=== PATIENT | female | born 1995 | race Caucasian/White ===

== ENCOUNTER 2017-03-28 17:56 | Emergency (ER) | payer SELFPAY ==
[~2017-03-28] VITALS: Ht 160 cm; Wt 59.7 kg
[~2017-03-28 17:56] MED LIST: BACT800T5 PO
[2017-03-28 18:21] VITALS: BP 147/61; PULSE 102; RESP 16; TEMP 100.1; O2SAT 96
[2017-03-28] MEDS ORDERED: PROCHLORPERAZINE INJ 10 MG/2 ML VIAL IV PUSH ONE (20:00)
[2017-03-28] MEDS ORDERED: diphenhydrAMINE HCL 50 MG/ML VIAL IV PUSH ONE (20:00)
--- NOTE | 2017-03-28 20:07 | PD ---
HPI . Headache Chief Complaint: Headache Time Seen by Provider: 19:41 Travel History International Travel<30 days: No Contact w/Intl Traveler<30days: No Traveled to known affect area: No History of Present Illness HPI Patient is a 21 year old female who presents with a headache. Patient reports that the headache began yesterday evening which affected her sleep to the point of waking up her which rarely occurs. The headache originally was felt to be located in her forehead but has since migrated to her temples and eyes. She reports that the headache has worsened. She describes that the pain started out as a constant pressure when in the forehead but has since transitioned to a throbbing & pulsing pain in her temples. Light seems to aggravate the headache, while 2 Advil Migraines combined with a wet washcloth on her forehead and a 5 minute nap brought some relief this morning. A follow up afternoon Advil Migraine did not provide relief. She is currently menstruating but reports irregularity in her cycle due to Depo shots previously and a current implanted Paragard copper IUD. She reports ear pain but denies jaw pain at rest or during chewing. Reports sensitivity to light and dry eyes, but denies seeing double or having blurred vision. Denies any nasal congestion or draining. PFSH Past Medical History Diminished Hearing: No ?: Unknown Social History Alcohol Use: No Tobacco Use: No Substance Use: No Allergies-Medications (Allergen,Severity, Reaction): Coded Allergies: No Known Allergies (Unverified Adverse Reaction, Unknown, 03/28/17) Reported Meds & Prescriptions Reported Meds & Active Scripts Active Review of Systems Except as stated in HPI: all other systems reviewed are Neg General / Constitutional: Positive: Fever, Chills Eyes: Positive: Photophobia, Pain, No: Diploplia, Blurred Vision, Drainage HENT: Positive: Headaches, No: Rhinitis, Rhinorrhea, Congestion Physical Exam Narrative GENERAL: Pleasant female in no acute distress SKIN: warm/dry. HEAD: Normocephalic. EYES: Pupils equal and round. Reactive to light. No scleral icterus. No injection or drainage. ENT: No nasal bleeding or discharge. Mucous membranes pink and moist. NECK: Trachea midline. Full range of motion without pain. Supple. CARDIOVASCULAR: Regular rate and rhythm. No clicks, rubs, or gallops. RESPIRATORY: No accessory muscle use. Clear to auscultation. Breath sounds equal bilaterally. GASTROINTESTINAL: Abdomen soft. Nontender. Bowel sounds present. Nondistended. MUSCULOSKELETAL: No obvious deformities. NEUROLOGICAL: Awake and alert. No obvious cranial nerve deficits. Motor grossly within normal limits. Normal speech. PSYCHIATRIC: Appropriate mood and affect; insight and judgment normal. Data Data Last Documented VS Vital Signs Date Time Temp Pulse Resp B/P (MAP) Pulse Ox O2 Delivery O2 Flow Rate FiO2 03/28/17 19:58 Room Air 03/28/17 18:21 100.1 102 16 147/61 (89) 96 Orders Orders Diphenhydramine Inj (Benadryl Inj) (03/28/17 20:00) Prochlorperazine Inj (Compazine Inj) (03/28/17 20:00) ^ Saline Lock (03/28/17 19:53) MDM Medical Decision Making Medical Screen Exam Complete: Yes Emergency Medical Condition: Yes Differential Diagnosis Headache due to fever, Migraine, Cluster Headache, Tension Headache, Temporal ( Giant Cell) Arteritis Narrative Course This is a 21 year old female who presents with symptoms of a headache. She reports photophobia and pain located bilaterally in her temples. She will be treated symptomatically with Compazine and Benadryl. Headache is improved with Compazine and Benadryl. She will be discharged home. Diagnosis Primary Impression: Headache behind the eyes Patient Instructions: Acute Headache (DC), General Instructions Disposition: 01 DISCHARGE HOME Condition: Stable Arlin Newby MD Mar 28, 2017 20:07
[2017-03-28 21:15] VITALS: BP 135/62; TEMP 99
== END 2017-03-28 21:16 | disposition home or self-care (01) ==
LOC: PHED 17:56
DX: R51 Headache (principal)
CPT/HCPCS: 96374; 96375; 99284; J0780; J1200